=== PATIENT | female | born 1995 | race Caucasian/White ===

== ENCOUNTER 2022-04-17 01:12 | Emergency (ER) | payer OTHER ==
[~2022-04-17] VITALS: Ht 172.7 cm; Wt 133.8 kg
--- NOTE | 2022-04-17 01:31 | NUR ---
TO ER BED 11, BIBFRIEND FOR PALPITATIONS WITH "CHEST TIGHTNESS" 1 HOURS THERAPIST'S ASSISTANT. "FEELING MORE STRESSED THEN USUAL" WITH C/O SOB AND PAIN UPON INHALATION. PT IS ALERT AND ORIENTED. AMBULATORY WITH STEADY GAIT. CONNECTED TO MONITOR. VSS. AWAITING MD ORDERS
--- NOTE | 2022-04-17 01:39 | NUR ---
Alem oakley in [facility] - 04/17/22 at 0140 by SADIE SUZANNE [facility] [phone]
--- NOTE | 2022-04-17 01:57 | NUR ---
ANDER SOLORZANO AT BEDSIDE FOR EKG
[2022-04-17 02:02] LABS: BASOPHILS % (AUTO) 0.5 % (0.0-2.0); EOSINOPHILS % (AUTO) 2.1 % (0.0-6.0); HEMATOCRIT 37 % (33-45); HEMOGLOBIN 11.9 g/dL (11.5-14.8); LYMPHOCYTES # (AUTO) 2.5 K/uL (0.8-4.8); LYMPHOCYTES % (AUTO) 27.8 % (20.0-44.0); MEAN CORPUSCULAR HGB CONC 32 g/dl (31.0-36.0); MEAN CORPUSCULAR VOLUME 83 fL (82-100); MONOCYTES # (AUTO) 0.6 K/uL (0.1-1.30); MONOCYTES % (AUTO) 6.8 % (2.0-12.0); NEUTROPHILS # (AUTO) 5.8 K/uL (1.8-8.9); NEUTROPHILS % (AUTO) 62.8 % (43.0-81.0); PLATELET COUNT (AUTO) 309 K/uL (150-450); RED BLOOD CELL COUNT(AUTO) 4.43 MIL/uL (4.0-5.2); WHITE BLOOD COUNT (AUTO) 9.2 K/uL (4.3-11.0)
[2022-04-17 02:16] LABS: CALCIUM, SERUM 9.5 mg/dL (8.5-10.1); CARBON DIOXIDE 28 mmol/L (21-32); CHLORIDE 104 mmol/L (98-107); GLUCOSE 103 mg/dL (74-106); POTASSIUM 3.8 mmol/L (3.5-5.1); SODIUM SERUM 140 mmol/L (136-145); UREA NITROGEN, BLOOD 13 mg/dL (7-18)
--- NOTE | 2022-04-17 03:40 | NUR ---
STAT RAD PAGED
--- NOTE | 2022-04-17 04:43 | NUR ---
Patient discharged to home in stable condition. Written and verbal after care instructions given. Patient verbalizes understanding of instruction.
[2022-04-17 04:44] VITALS: BP 110/61
== END 2022-04-17 04:47 | disposition home or self-care (01) ==
LOC: ER 01:28
DX: R00.2 Palpitations (principal); F41.9 Anxiety disorder, unspecified; R07.89 Other chest pain; Z60.2 Problems related to living alone
CPT/HCPCS: 36415; 71045-TC; 80048-TC; 84484-TC; 85025-TC